=== PATIENT | female | born 1950 | race Caucasian/White ===

== ENCOUNTER → 2017-01-05 | Outpatient (CLI) | payer MEDICARE ==
[~2017-01-05] MED LIST: ALBU8.5H INH; ALPR-236 PO; ARIP5TAB12 PO; DABI150C PO; DONE10TA30 PO; DULO60CA25 PO; FLEC100T21 PO; FURO40TA5 PO; GABA-338 PO; HYDR-4072 PO; LIRA0.6P SQ; MAGN400C PO; METF-200 PO; METF-206 PO; METO25TA6 PO; PANT40TA27 PO; PIOG45TA PO; PRAM0.5T3 PO; ROSU40TA8 PO; SULF1TAB42 PO; TEMA15CA PO; [UNRECOGNIZED DRUG - CODE] PO
--- NOTE | 2017-01-05 13:00 | DI ---
Indication: ITS.REASON: M25.551 PAIN IN RIGHT HIP PROCEDURE: HIP RIGHT 2 VIEW: Encounter: Initial Comparison: None Findings: There is probable moderate sacroiliitis. There is no acute fracture, dislocation or malalignment identified. No definite hip effusion. No soft tissue mass or abnormal calcification. Impression: Moderate sacroiliitis. No acute osseous abnormality. .
== END ==
LOC: IMA 11:41
PROVIDERS: ATTEND Family Medicine
DX: M46.1 Sacroiliitis, not elsewhere classified (principal); M25.551 Pain in right hip

== ENCOUNTER → 2017-01-13 | Outpatient (CLI) | payer MEDICARE | LOC: WC.BC 13:40 | PROVIDERS: ATTEND Family Medicine | DX: N64.59 Other signs and symptoms in breast (principal); R92.8 Other abnormal and inconclusive findings on diagnostic imaging of breast; N63 Unspecified lump in breast | CPT/HCPCS: 76642; G0206; G0279 ==